=== PATIENT | female | born 1975 | race American Indian/Alaskan Native ===

== ENCOUNTER 2016-06-22 15:59 | Inpatient (IN) | payer MEDICARE ==
[2016-06-22 17:08] LABS: Basophils % (Auto) 0.3 % (0.0-1.8); Eosinophils % (Auto) 1.7 % (0.0-4.3); Hematocrit 38.9 % (30.3-42.9); Mean Corpuscular HGB Conc 34 % (30-34); Mean Corpuscular Hemoglobin 30 pg (28-32); Mean Corpuscular Volume 90 fl (79-97); Platelet Count 149 K/mm3 (140-440); Red Blood Count 4.35 M/mm3 (3.65-5.03); Red Cell Distribution Width 13.1 % (13.2-15.2); White Blood Count 5.7 K/mm3 (4.5-11.0)
[2016-06-22] MEDS ORDERED: ZOFRAN IV ONE (17:43)
[2016-06-22] MEDS ORDERED: MORPHINE IV ONE (17:43)
[2016-06-22 17:57] LABS: Anion Gap 16 mmol/L; Blood Urea Nitrogen 11 mg/dL (7-17); Calcium 8.9 mg/dL (8.4-10.2); Carbon Dioxide 28 mmol/L (22-30); Chloride 100.2 mmol/L (98-107); Glucose 81 mg/dL (65-100); Potassium 5.2 mmol/L (3.6-5.0); Sodium 139 mmol/L (137-145)
--- NOTE | 2016-06-22 18:04 | Emergency Department Report ---
ED Chest Pain HPI - General Chief Complaint: Chest Pain Stated Complaint: CHEST PAIN Time Seen by Provider: 06/22/16 17:16 Source: patient, EMS Mode of arrival: Stretcher Limitations: No Limitations - History of Present Illness Initial Comments: 41-year-old female with a past medical history insulin-dependent diabetes, chronic neuropathy, bipolar, and elevated cholesterol presents to the hospital complains of chest pain and started this morning. Patient states she woke up about 10 AM with left-sided chest pain described as squeezing. Chest pain is intermittent and worse with movement. Mild shortness of breath reported. Onset of nausea without vomiting or diaphoresis. Patient is associative left arm tingling extending down to the fingers and tingling sensation to jaw. The patient does have a history of chronic neuropathy she states these symptoms are new. She denies history of previous stress test. Her dad had a stent placed in his 40s. She does not smoke cigarettes. Severity scale (0 -10): 4 - Related Data Home Medications Medication Instructions Recorded Confirmed Last Taken Aspirin EC [Aspirin Enteric Coated 81 mg PO DAILY 06/22/16 06/22/16 Unknown TAB] Calcium Phosphate Trib/Vit D3 1 tab PO DAILY 06/22/16 06/22/16 Unknown [Calcium + Vitamin D3 Gummies] Citalopram Hydrobromide 20 mg PO BID 06/22/16 06/22/16 Unknown [Citalopram HBr] Meclizine [Antivert] 25 mg PO TID 06/22/16 06/22/16 Unknown Morphine Sulfate [Morphine Sulfate 30 mg PO BID 06/22/16 06/22/16 Unknown ER] Nortriptyline HCl 50 mg PO QHS 06/22/16 06/22/16 Unknown OXcarbazepine [Trileptal] 300 mg PO QID 06/22/16 06/22/16 Unknown Oxycodone HCl [Roxicodone TAB] 15 mg PO QID 06/22/16 06/22/16 Unknown Pravastatin Sodium [Pravastatin] 10 mg PO QHS 06/22/16 06/22/16 Unknown Temazepam 30 mg PO QHS 06/22/16 06/22/16 Unknown clonazePAM 2 mg PO QID 06/22/16 06/22/16 Unknown Allergies Allergy/AdvReac Type Severity Reaction Status Date / Time Sulfa (Sulfonamide Allergy Hives Verified 11/22/15 20:02 Antibiotics) DIEGO score - Diego Score Age > 65: (0) No Aspirin use within the Past 7 Days: (1) Yes 3 or more CAD Risk Factors: (1) Yes 2 or more Angina events in past 24 hrs: (1) Yes Known CAD with more than 50% Stenosis: (0) No Elevated Cardiac Markers: (0) No ST Deviation Greater than 0.5mm: (0) No DIEGO Score: 3 ED Review of Systems ROS: Stated complaint: CHEST PAIN Other details as noted in HPI Comment: All other systems reviewed and negative Other: Constitutional: No fevers chills Eyes: No eye pain visual changes or discharge ENT: No ear pain or throat pain Neck: Denies pain Respiratory: Denies cough wheezing Cardiovascular: Denies palpitations, syncope GI: Denies abdominal pain, vomiting, diarrhea : Denies dysuria, urinary frequency, or urgency Musculoskeletal: Denies back pain, joint swelling Skin: Denies rash, lesions, erythema Neurologic: Denies headache Psychiatric: Denies suicidal ideation, hallucinations ED Past Medical Hx - Past Medical History Hx Diabetes: Yes Hx Liver Disease: Yes (bipolar) Additional medical history: neuropathy, pain management, - Surgical History Hx Cholecystectomy: Yes Additional Surgical History: tubaligation,gastric bypass,tonsillectomy, bilateral carpel tunnel,cataracts - Social History Smoking Status: Never Smoker - Medications Home Medications: Home Medications Medication Instructions Recorded Confirmed Last Taken Type Aspirin EC [Aspirin Enteric Coated 81 mg PO DAILY 06/22/16 06/22/16 Unknown History TAB] Calcium Phosphate Trib/Vit D3 1 tab PO DAILY 06/22/16 06/22/16 Unknown History [Calcium + Vitamin D3 Gummies] Citalopram Hydrobromide 20 mg PO BID 06/22/16 06/22/16 Unknown History [Citalopram HBr] Meclizine [Antivert] 25 mg PO TID 06/22/16 06/22/16 Unknown History Morphine Sulfate [Morphine Sulfate 30 mg PO BID 06/22/16 06/22/16 Unknown History ER] Nortriptyline HCl 50 mg PO QHS 06/22/16 06/22/16 Unknown History OXcarbazepine [Trileptal] 300 mg PO QID 06/22/16 06/22/16 Unknown History Oxycodone HCl [Roxicodone TAB] 15 mg PO QID 06/22/16 06/22/16 Unknown History Pravastatin Sodium [Pravastatin] 10 mg PO QHS 06/22/16 06/22/16 Unknown History Temazepam 30 mg PO QHS 06/22/16 06/22/16 Unknown History clonazePAM 2 mg PO QID 06/22/16 06/22/16 Unknown History ED Physical Exam - General Limitations: No Limitations - Other Other exam information: General: No limitations, patient is alert in no acute distress Head exam: Atraumatic, normocephalic Eyes exam: Normal appearance, pupils equal reactive to light, extraocular movements intact ENT: Moist mucous membrane, normal oropharynx Neck exam: Normal inspection, full range of motion Respiratory exam: Clear to auscultation bilateral, no wheezes, rales, crackles Cardiovascular: Normal rate and rhythm, mild sternal anterior chest wall tenderness Abdomen: Soft, nondistended, and nontender, with normal bowel sounds, no rebound, or guarding Extremity: Full range of motion normal inspection no deformity bi or tenderness or edema Back: Normal Inspection, full range of motion, no tenderness Neurologic: Alert, oriented x3, cranial nerves intact, no motor deficit Psychiatric: normal affect, normal mood Skin: Warm, dry, intact ED Course Vital Signs 06/22/16 06/22/16 06/22/16 16:01 18:00 18:09 Pulse Rate 90 73 Respiratory 16 16 16 Rate Blood Pressure 108/80 Blood Pressure 108/80 109/74 [Left] O2 Sat by Pulse 99 100 Oximetry 06/22/16 18:37 Pulse Rate Respiratory 16 Rate Blood Pressure Blood Pressure [Left] O2 Sat by Pulse 100 Oximetry - Reevaluation(s) Reevaluation #1: 06/22/16 19:27 no change after morphine, zofran. ASA given district captain ED Medical Decision Making - Lab Data Result diagrams: 06/22/16 16:40 06/22/16 16:40 Lab Results 06/22/16 06/22/16 Range/Units 16:40 16:40 WBC 5.7 (4.5-11.0) K/mm3 RBC 4.35 (3.65-5.03) M/mm3 Hgb 13.0 (10.1-14.3) gm/dl Hct 38.9 (30.3-42.9) % MCV 90 (79-97) fl MCH 30 (28-32) pg MCHC 34 (30-34) % RDW 13.1 L (13.2-15.2) % Plt Count 149 (140-440) K/mm3 Lymph % (Auto) 40.1 H (13.4-35.0) % Porter % (Auto) 7.8 H (0.0-7.3) % Eos % (Auto) 1.7 (0.0-4.3) % Baso % (Auto) 0.3 (0.0-1.8) % Lymph # 2.3 (1.2-5.4) K/mm3 Porter # 0.4 (0.0-0.8) K/mm3 Eos # 0.1 (0.0-0.4) K/mm3 Baso # 0.0 (0.0-0.1) K/mm3 Seg Neutrophils % 50.1 (40.0-70.0) % Seg Neutrophils # 2.9 (1.8-7.7) K/mm3 Sodium 139 (137-145) mmol/L Potassium 5.2 H (3.6-5.0) mmol/L Chloride 100.2 (98-107) mmol/L Carbon Dioxide 28 (22-30) mmol/L Anion Gap 16 mmol/L BUN 11 (7-17) mg/dL Creatinine 1.0 (0.7-1.2) mg/dL Estimated GFR > 60 ml/min BUN/Creatinine Ratio 11.00 % Glucose 81 (65-100) mg/dL Calcium 8.9 (8.4-10.2) mg/dL Troponin T < 0.010 (0.00-0.029) ng/mL - EKG Data -: EKG Interpreted by Me (nsr 81, pvc's low voltage qrs) - EKG Data When compared to previous EKG there are: previous EKG unavailable - Medical Decision Making Plan to admit patient to the hospital for cardiac stress testing and further workup of chest pain given risk factors. No signs of acute DE at this time. - Differential Diagnosis DE, unstable angina, atypical chest pain, costochondritis, neuropathy Critical Care Time: No Critical care attestation.: If time is entered above; I have spent that time in minutes in the direct care of this critically ill patient, excluding procedure time. ED Disposition Clinical Impression: Chest pain, Insulin dependent diabetes mellitus, History of high cholesterol, Diabetic neuropathy, Paresthesia of arm Disposition: OP ADMITTED IP TO THIS HOSP Is pt being admited?: Yes Does the pt Need Aspirin: No (received prior to arrival) Condition: Stable Time of Disposition: 19:04 (Dr almazan/[facility])
--- NOTE | 2016-06-22 19:28 | Admit Criteria Form ---
Admission Criteria Documentation: CHEST PAIN Clinical Indications for Admission to Inpatient Care (Place 'X' for any and all applicable criteria): Admission is indicated for chest pain and ANY ONE of the following(1)(2)(3)(4)(5 ): [ ]I. Angina with acute coronary syndrome (Also use Myocardial Infarction or Angina guideline) [ ]II. Hemodynamic instability [ X]III. Angina needing acute intervention as indicated by ALL of the following (11)(12): [ ]a) Unstable angina is present as indicated by angina that is ANY ONE of the following: [ ]i) New onset [ ]ii) Nocturnal [ ]iii) Prolonged at rest [ ]iv) Progressive [X]b) Angina warrants acute intervention as indicated by ANY ONE of the following: [ ]i Recurrent angina (e.g, not responding as previously to treatment) [ ]ii) Angina at rest or with low-level activities despite initial medical therapy [ ]iii) New or presumably new ST-segment depression on ECG [ ]iv) Signs or symptoms of heart failure (eg, dyspnea, pulmonary edema) [ ]v) New or worsening mitral regurgitation [ ]vi) Hemodynamic instability [ ]vii) Dangerous arrhythmia (eg, sustained ventricular tachycardia) [ ]viii) History of percutaneous coronary intervention within 6 months [ ]ix) History of coronary artery bypass graft surgery [X]x) DIEGO risk score of 2 or greater[A] [X]xi) History of Diabetes(14) [ ]xii) High-risk cardiac ischemia findings on noninvasive testing (e.g, echocardiogram, treadmill testing, nuclear scan) [ ]xiii) Chronic renal insufficiency (ie, estimated GFR less than 60 mL/min/1.732m) [ ]xiv) Left ventricular ejection fraction less than 40% [ ]IV. Evidence of MS (eg, cardiac biomarkers positive, ST-segment elevation on ECG) also use Myocardial Infarction Criteria Form. [ ]V. Pulmonary edema [ ]. Respiratory distress [ ]VII. Chest pain indicative of serious diagnosis other than coronary artery disease (eg, aortic dissection) [ ]VIII. Contraindications and/or Inappropriate clinical situations for Observational Care in patients with Chest Pain, when ANY ONE of the following is required: [ ]a) Patient with risk factor for pulmonary embolism, acute coronary syndrome and myocardial infarction (18) [ ]b) Patient with Pulmonary embolism require an average LOS of 4.3 days, therefore emergency department observation management is inappropriate 18,23 [ ]c) Painful condition/s in the elderly, have the highest rate of recidivism after emergency department observation management (10.8%) 20,21,22 [ ]d) Elevated cardiac biomarker requires intensive and exhaustive care (19) [ ]IX. General contraindications and/or Inappropriate clinical situations for Observational Care in patients with Chest Pain, when ANY ONE of the following is required: [ ]a) Prediction of prolongation of LOS based on ANY ONE of the following may be considered as a contraindication for observational care 2, 3, 4, 5, 6, 7, 8, 9, 10, 11 [ ]i) Age > 65 yrs. [ ]ii) Patient arriving by ambulance [ ]iii) Patient with high acuity [ ]iv) Patient requiring vital sign monitoring [ ]v) Patient on IV medication [ ]b) Systolic blood pressures 180mmHg 3,12 [ ]c) Patient with altered mental status including delirium and other alteration of consciousness, (3) [ ]d) Patient whose discharge disposition will be to a half-way home or rehabilitation home should not be managed in Emergency Department Observation Unit. CMS rule requires 3 days hospital stay before such placement. 3,13 [ ]e) Patient with failure to thrive due to broad array of etiologies 3,16,17 [ ]f) Inability to ambulate 3,14 Extended stay beyond goal length of stay may be needed for (1)(28): [ ]a) Specific condition diagnosed after evaluation (eg, pulmonary embolism, aortic dissection) [ ]b) Unstable angina [ ]c) Continued suspicion of acute coronary syndrome with inability to complete needed cardiac evaluation (eg, patient clinically unable to undergo stress testing) [ ]d) Myocardial infarction (Contents from ANGINA and CHEST PAIN clinical indications for admission to inpatient care have been integrated in this form) The original [facility] content created by [employer] has been revised. The portions of the content which have been revised are identified through the use of italic text or in bold, and [facility] [email or web address] has neither reviewed nor approved the modified material. All other unmodified content is copyright [facility]. Please see references footnoted in the original [employer] [facility] edition 2016 Admission Criteria Met: Yes
[2016-06-22] MEDS ORDERED: PERCOCET 5/325 PO PRN (19:31)
[2016-06-22] MEDS ORDERED: TYLENOL PO PRN (19:31)
[2016-06-22] MEDS ORDERED: D50W (25GM) IV PRN (19:31)
[2016-06-22] MEDS ORDERED: ZOFRAN IV PRN (19:31)
[2016-06-22] MEDS ORDERED: PROVENTIL IH PRN (19:31)
[2016-06-22] MEDS ORDERED: DULCOLAX PR PRN (19:31)
[2016-06-22] MEDS ORDERED: SODIUM CHLORIDE FLUSH SYRINGE 10 ML IV PRN (19:31)
[2016-06-22] MEDS ORDERED: MILK OF MAGNESIA PO PRN (19:31)
[2016-06-22] MEDS ORDERED: MORPHINE IV PRN (19:31)
--- NOTE | 2016-06-22 19:43 | History and Physical Report ---
History of Present Illness Date of examination: 06/22/16 Date of admission: 06-22-16 Chief complaint: chest pain History of present illness: 41-year-old female with extensive past medical history her risk factors including hypertension, diabetes, hyperlipidemia, strong family history neuropathy and chronic pain presents with a new episode of left-sided chest pain. Patient had similar episode approximate 6 months ago but left AGAINST MEDICAL ADVICE. Patient never had initial workup. Patient states she was doing okay in her normal state of health until yesterday morning actually 10 AM in which she had a tingling in her left arm that went down to her fingertips. This tingling also went to her chin as well. This lasted for approximately 1 hour on and off. There was never any acute pain. Mostly numbness and tingling. This was not associated with shortness of breath or dyspnea on exertion orthopnea no PND. Patient has had diabetes for approximately 20 years and is suffering from extensive neuropathy. Patient thought this was neuropathy at was making her feel bad because of the tingling. Patient has been out of her Lyrica and which she says she was getting 200 mg 3 times a day. After the Lyrica did not work for neuropathy patient was sent to pain management and was started on the morphine and Roxicodone that we have here. She states her sugars been doing pretty well. Patient moved here from [facility] and the majority of workup for everything is been in [place]. Patient has not had a cardiac workup ever. At present patient is hemodynamically stable and pain-free. Although has some numbness. No nausea vomiting no diarrhea no constipation. Patient states symptoms and pain lasted for approximately 30 minutes to an hour. Had been more frequently. Denies at present shortness of breath denies hypoglycemia. Past History Past Medical History: arrhythmia, diabetes, hypertension. denies: acute [place], atrial fib, anemia, arthritis, CAD, cancer, COPD, dialysis, DVT, ESRD, GERD, heart failure, hepatitis, HIV/AIDS, hyperthyroidism, hyperlipidemia, hypothyroidism, liver disease, migraines, PVD, pulmonary embolism, renal failure , seizures, stroke, sarcoidosis Past Surgical History: , hysterectomy, tonsillectomy, Other Social history: , lives with family, full code. denies: smoking, alcohol abuse, prescription drug abuse, IV drug use Family history: CAD, hypertension Medications and Allergies Allergies Allergy/AdvReac Type Severity Reaction Status Date / Time Sulfa (Sulfonamide Allergy Hives Verified 11/22/15 20:02 Antibiotics) Home Medications Medication Instructions Recorded Confirmed Last Taken Type Aspirin EC [Aspirin Enteric Coated 81 mg PO DAILY 06/22/16 06/22/16 Unknown History TAB] Calcium Phosphate Trib/Vit D3 1 tab PO DAILY 06/22/16 06/22/16 Unknown History [Calcium + Vitamin D3 Gummies] Citalopram Hydrobromide 20 mg PO BID 06/22/16 06/22/16 Unknown History [Citalopram HBr] Meclizine [Antivert] 25 mg PO TID 06/22/16 06/22/16 Unknown History Morphine Sulfate [Morphine Sulfate 30 mg PO BID 06/22/16 06/22/16 Unknown History ER] Nortriptyline HCl 50 mg PO QHS 06/22/16 06/22/16 Unknown History OXcarbazepine [Trileptal] 300 mg PO QID 06/22/16 06/22/16 Unknown History Oxycodone HCl [Roxicodone TAB] 15 mg PO QID 06/22/16 06/22/16 Unknown History Pravastatin Sodium [Pravastatin] 10 mg PO QHS 06/22/16 06/22/16 Unknown History Temazepam 30 mg PO QHS 06/22/16 06/22/16 Unknown History clonazePAM 2 mg PO QID 06/22/16 06/22/16 Unknown History Review of Systems Constitutional: no weight loss, no weight gain, no fever, no chills, no sweats, no anorexia, no fatigue, no weakness, no malaise, no lethargy, no poor appetite , no chronic pain, no other Ears, nose, mouth and throat: no deferred, no ear discharge, no decreased hearing, no nasal discharge, no epistaxis, no mouth pain, no hoarseness, no sore throat, no headache Cardiovascular: chest pain, rapid/irregular heart beat, lightheadedness, high blood pressure, leg edema, decreased exercise tolerance, no orthopnea, no palpitations, no edema, no syncope, no shortness of breath, no dyspnea on exertion, no paroxysmal nocturnal dyspnea, no claudication, no phlebitis Respiratory: shortness of breath, no cough, no cough with sputum, no hemoptysis , no pleurisy, no pain, no sleep apnea, no respiratory infections, no home oxygen Gastrointestinal: nausea, no abdominal pain, no vomiting, no diarrhea, no constipation, no change in bowel habits, no BRBPR, no melena, no loss of appetite, no early satiety, no heartburn, no jaundice, no dyspepsia/bloating, no early satiety Genitourinary Female: no flank pain, no menorrhagia, no dysuria, no urgency, no post void dribbling, no incomplete emptying, no vaginal itching, no vaginal odor , no genital sores, no decreased libido, no mood problems, no hot flashes Menstruation: no ammenorrhea, no period normal, no period heavy, no menses variable, no cycle < 21 days, no cycle variable, no no periods for 6 months Musculoskeletal: muscle weakness, no neck stiffness, no neck pain, no shooting arm pain, no arm numbness/tingling, no low back pain, no morning stiffness, no muscle cramps, no limitation of motion, no gait dysfunction, no frequent falls, no fractures, no loss of height Neurological: other (she does have bilateral sensory neuropathy), no transient paralysis, no weakness, no parathesias, no tingling, no seizures, no syncope, no tremors, no ataxia, no convulsions, no aphasia, no change in speech, no change in mentation, no confusion, no memory loss, no motor disturbance, no sensory deficit, no loss of vision, no burning pain Psychiatric: no anxiety, no memory loss, no change in sleep habits, no sleep disturbances, no insomnia, no hypersomnia, no change in libido, no suicidal ideation, no paranoia, no depression, no hopelessness, no anhedonia, no anxiety attacks, no confusion Endocrine: no polyphagia, no excessive thirst, no flushing, no increase in ring/ shoe/hat size, no deepening of the voice, no thyroid mass, no palpatations, no high blood sugars, no low blood sugars, no recent glucocorticoid use Hematologic/Lymphatic: no easy bruising, no easy bleeding, no thrombophilia, no other Allergic/Immunologic: no allergic rhinitis, no anaphylaxis Exam - Constitutional Vitals: Temp Pulse Resp BP Pulse Ox 73 16 109/74 100 06/22/16 18:00 06/22/16 18:37 06/22/16 18:00 06/22/16 18:37 General appearance: Present: no acute distress, well-nourished - EENT Eyes: Present: PERRL ENT: hearing intact, clear oral mucosa - Neck Neck: Present: supple, normal ROM - Respiratory Respiratory effort: normal Respiratory: bilateral: CTA - Cardiovascular Heart Sounds: Present: S1 & S2. Absent: rub, click - Extremities Extremities: pulses symmetrical, No edema Peripheral Pulses: within normal limits - Abdominal General gastrointestinal: Present: soft, non-tender, non-distended, normal bowel sounds Female genitourinary: Present: normal - Integumentary Integumentary: Present: clear, warm, dry - Musculoskeletal Musculoskeletal: strength equal bilaterally, other (lateral sensory neuropathy) - Psychiatric Psychiatric: appropriate mood/affect, intact judgment & insight - Neurologic Neurologic: CNII-XII intact, moves all extremities Results - Labs CBC & Chem 7: 06/22/16 16:40 06/22/16 16:40 Labs: Laboratory Last Values WBC 5.7 K/mm3 (4.5-11.0) 06/22/16 16:40 RBC 4.35 M/mm3 (3.65-5.03) 06/22/16 16:40 Hgb 13.0 gm/dl (10.1-14.3) 06/22/16 16:40 Hct 38.9 % (30.3-42.9) 06/22/16 16:40 MCV 90 fl (79-97) 06/22/16 16:40 MCH 30 pg (28-32) 06/22/16 16:40 MCHC 34 % (30-34) 06/22/16 16:40 RDW 13.1 % (13.2-15.2) L 06/22/16 16:40 Plt Count 149 K/mm3 (140-440) 06/22/16 16:40 Lymph % (Auto) 40.1 % (13.4-35.0) H 06/22/16 16:40 [place] % (Auto) 7.8 % (0.0-7.3) H 06/22/16 16:40 Eos % (Auto) 1.7 % (0.0-4.3) 06/22/16 16:40 Baso % (Auto) 0.3 % (0.0-1.8) 06/22/16 16:40 Lymph # 2.3 K/mm3 (1.2-5.4) 06/22/16 16:40 [place] # 0.4 K/mm3 (0.0-0.8) 06/22/16 16:40 Eos # 0.1 K/mm3 (0.0-0.4) 06/22/16 16:40 Baso # 0.0 K/mm3 (0.0-0.1) 06/22/16 16:40 Seg Neutrophils % 50.1 % (40.0-70.0) 06/22/16 16:40 Seg Neutrophils # 2.9 K/mm3 (1.8-7.7) 06/22/16 16:40 Sodium 139 mmol/L (137-145) 06/22/16 16:40 Potassium 5.2 mmol/L (3.6-5.0) H 06/22/16 16:40 Chloride 100.2 mmol/L (98-107) 06/22/16 16:40 Carbon Dioxide 28 mmol/L (22-30) 06/22/16 16:40 Anion Gap 16 mmol/L 06/22/16 16:40 BUN 11 mg/dL (7-17) 06/22/16 16:40 Creatinine 1.0 mg/dL (0.7-1.2) 06/22/16 16:40 Estimated GFR > 60 ml/min 06/22/16 16:40 BUN/Creatinine Ratio 11.00 % 06/22/16 16:40 Glucose 81 mg/dL (65-100) 06/22/16 16:40 Calcium 8.9 mg/dL (8.4-10.2) 06/22/16 16:40 Troponin T < 0.010 ng/mL (0.00-0.029) 06/22/16 16:40 - Imaging and Cardiology EKG: image reviewed Chest x-ray: image reviewed Assessment and Plan Advance Directives: Yes Plan of care discussed with patient/family: Yes - Patient Problems (1) HTN (hypertension) Current Visit: Yes Status: Acute Qualifiers: Hypertension type: H Plan to address problem: Patient blood pressure fairly well-controlled. Continue medical management. (2) Chest pain Current Visit: Yes Status: Acute Qualifiers: Chest pain type: C Plan to address problem: S pain very difficult to tell whether this is cardiac in nature. Mostly neuropathy. Her symptoms however are in left arm left shoulder chest area and radiate to Chin. Patient has enough significant risk factors that she requires ruling out. Patient has hypertension hyperlipidemia diabetes for greater than 20 years morbid obesity and a strong family history. Will bring in obtain stress test echocardiogram and further risk stratify will cardiac isoenzymes. 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 We'll need to gain a better understanding of how good her blood sugars a been. Patient states they've been well controlled however will need further follow-up hemoglobin A1c. We'll place patient on diabetic diet Accu-Cheks before every meal seeing daily at bedtime cover with sliding-scale insulin. He should also has been out of Lyrica. States she was taking 200 mg 3 times a day and I cannot confirm this we 'll start with 75 mg 3 times a day. If we get obtain some confirmation of these dosages will change. (4) History of high cholesterol Current Visit: Yes Status: Acute (5) Insulin dependent diabetes mellitus Current Visit: Yes Status: Acute Plan to address problem: We'll place patient back on current insulin dose and diabetic diet with sliding- scale insulin coverage. Obtain A1c to examine how well controlled patient has been. 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 (6) Paresthesia of arm Current Visit: Yes Status: Acute
[2016-06-22 21:16] LABS: Creatine Kinase MB 3.1 ng/mL (0.0-4.0)
[2016-06-22 21:18] LABS: Creatine Kinase 59 units/L (30-135)
[2016-06-22] MEDS ORDERED: PAMELOR PO SCH (22:00)
[2016-06-22] MEDS ORDERED: PEPCID IV SCH (22:00)
[2016-06-22] MEDS ORDERED: NON-FORMULARY (Pravastatin Sodium [Pravastatin] 10 MG) PO SCH (22:00)
[2016-06-22] MEDS ORDERED: ZOCOR PO SCH (22:00)
[2016-06-22] MEDS: ANTIVERT PO SCH (22:30)
[2016-06-22] MEDS: celeXA PO SCH (22:31)
[2016-06-22] MEDS: TRILEPTAL PO SCH (23:18)
[2016-06-22] MEDS: MS CONTIN ER PO SCH (23:18)
[2016-06-22] MEDS ORDERED: RESTORIL PO SCH (23:45)
[2016-06-22 23:59] LABS: Creatine Kinase MB 2.7 ng/mL (0.0-4.0)
[2016-06-23 00:01] LABS: Creatine Kinase 59 units/L (30-135)
[2016-06-23] MEDS: ROXICODONE PO SCH ×4 (05:03→14:49)
[2016-06-23 07:08] LABS: Creatine Kinase MB 2.3 ng/mL (0.0-4.0)
[2016-06-23 07:13] LABS: Creatine Kinase 56 units/L (30-135)
[2016-06-23] MEDS ORDERED: LEXISCAN IV ONE ×2 (09:32→09:52)
[2016-06-23] MEDS ORDERED: BABY ASPIRIN PO SCH (10:00)
[2016-06-23] MEDS ORDERED: HALFPRIN EC PO SCH (10:00)
[2016-06-23] MEDS ORDERED: PEPCID PO SCH (10:00)
[2016-06-23] MEDS ORDERED: LOVENOX SUB-Q SCH (10:00)
--- NOTE | 2016-06-23 10:29 | Consultation ---
History of Present Illness Consult date: 06/23/16 Requesting physician: NIVIA RIVAS Consult reason: chest pain History of present illness: The patient is a 41 year old female with a history of hypertension, diabetes, hyperlipdiemia, heart failure who presented with complaints of chest pain that started yesterday morning approximately 30 minutes after she completed [employer] cardiac aerobics. She states the chest pain was left sided with radiation to her left arm and jaw described as a squeezing pain. She states the pain lasted for approximately one hour. No shortness of breath, palpitations, nausea, vomiting or diaphoresis. Troponin negative x 3. No previous ischemic evaluation. Past History Past Medical History: diabetes, heart failure, hypertension, hyperlipidemia Past Surgical History: , hysterectomy, tonsillectomy Social history: , lives with family, full code. denies: smoking, alcohol abuse, prescription drug abuse, IV drug use Family history: CAD, hypertension Medications and Allergies Allergies Allergy/AdvReac Type Severity Reaction Status Date / Time Sulfa (Sulfonamide Allergy Hives Verified 11/22/15 20:02 Antibiotics) Home Medications Medication Instructions Recorded Confirmed Last Taken Type Aspirin EC [Aspirin Enteric Coated 81 mg PO DAILY 06/22/16 06/22/16 Unknown History TAB] Calcium Phosphate Trib/Vit D3 1 tab PO DAILY 06/22/16 06/22/16 Unknown History [Calcium + Vitamin D3 Gummies] Citalopram Hydrobromide 20 mg PO BID 06/22/16 06/22/16 Unknown History [Citalopram HBr] Meclizine [Antivert] 25 mg PO TID 06/22/16 06/22/16 Unknown History Morphine Sulfate [Morphine Sulfate 30 mg PO BID 06/22/16 06/22/16 Unknown History ER] Nortriptyline HCl 50 mg PO QHS 06/22/16 06/22/16 Unknown History OXcarbazepine [Trileptal] 300 mg PO QID 06/22/16 06/22/16 Unknown History Oxycodone HCl [Roxicodone TAB] 15 mg PO QID 06/22/16 06/22/16 Unknown History Pravastatin Sodium [Pravastatin] 10 mg PO QHS 06/22/16 06/22/16 Unknown History Temazepam 30 mg PO QHS 06/22/16 06/22/16 Unknown History clonazePAM 2 mg PO QID 06/22/16 06/22/16 Unknown History Active Meds: Active Medications Acetaminophen (Tylenol) 650 mg PO Q4H PRN PRN Reason: Pain MILD(1-3)/Fever >100.5/VELAZQUEZ Albuterol (Proventil) 2.5 mg IH Q3HRT PRN PRN Reason: Shortness Of Breath Aspirin (Halfprin Ec) 81 mg PO DAILY [facility] Bisacodyl (Dulcolax) 10 mg [place] QDAY PRN PRN Reason: Constipation unrelieved by MOM Citalopram Hydrobromide (Celexa) 20 mg PO BID [facility] Last Admin: 06/22/16 22:31 Dose: 20 mg Clonazepam (Klonopin) 2 mg PO QID [facility] Last Admin: 06/22/16 22:31 Dose: 2 mg Dextrose (D50w (25gm)) 50 ml IV PRN PRN PRN Reason: Hypoglycemia Enoxaparin Sodium (Lovenox) 40 mg SUB-Q QDAY [facility] Famotidine (Pepcid) 10 mg PO BID [facility] Insulin Human Regular (Novolin R) 0 units SUB-Q ACHS [facility] PRN Reason: Protocol Last Admin: 06/22/16 23:19 Dose: Not Given Magnesium Hydroxide (Milk Of Magnesia) 30 ml PO Q4H PRN PRN Reason: Constipation Meclizine HCl (Antivert) 25 mg PO TID [facility] Last Admin: 06/22/16 22:30 Dose: 25 mg Morphine Sulfate (Morphine) 2 mg IV Q4H PRN PRN Reason: Pain, Moderate (4-6) Morphine Sulfate (Ms Contin Er) 30 mg PO BID [facility] Last Admin: 06/22/16 23:18 Dose: 30 mg Nortriptyline HCl (Pamelor) 50 mg PO QHS [facility] Last Admin: 06/22/16 23:19 Dose: 50 mg Ondansetron HCl (Zofran) 4 mg IV Q8H PRN PRN Reason: N/V unrelieved by Reglan Oxcarbazepine (Trileptal) 300 mg PO QID [facility] Last Admin: 06/22/16 23:18 Dose: 300 mg Oxycodone HCl (Roxicodone) 15 mg PO QID [facility] Last Admin: 06/23/16 05:07 Dose: Not Given Oxycodone/Acetaminophen (Percocet 5/325) 1 tab PO Q6H PRN PRN Reason: Pain, Moderate (4-6) Simvastatin (Zocor) 10 mg PO QHS [facility] Last Admin: 06/22/16 23:18 Dose: 10 mg Sodium Chloride (Sodium Chloride Flush Syringe 10 Ml) 10 ml IV PRN PRN PRN Reason: LINE FLUSH Temazepam (Restoril) 30 mg PO QHS [facility] Last Admin: 06/23/16 05:03 Dose: Not Given Review of Systems Constitutional: no fever, no chills Ears, nose, mouth and throat: no nasal congestion, no nasal discharge, no sinus pressure Cardiovascular: chest pain, no shortness of breath, no dyspnea on exertion, no leg edema Respiratory: no cough, no shortness of breath, no dyspnea on exertion, no congestion, no wheezing Gastrointestinal: no abdominal pain, no nausea, no vomiting, no diarrhea Genitourinary Female: no dysuria, no urgency Musculoskeletal: arm numbness/tingling (left arm), no neck stiffness, no neck pain Integumentary: no rash, no pruritis Neurological: no parathesias, no numbness, no tingling Endocrine: no cold intolerance, no heat intolerance Hematologic/Lymphatic: no easy bruising, no easy bleeding Allergic/Immunologic: no urticaria, no wheezing Physical Examination Vital Signs Pulse Resp BP Pulse Ox 90 16 108/80 99 06/22/16 16:01 06/22/16 16:01 06/22/16 16:01 06/22/16 16:01 General appearance: no acute distress, obese HEENT: Positive: Normocephaly, Mucus Membranes Moist Neck: Positive: neck supple, trachea midline Cardiac: Positive: Reg Rate and Rhythm, S1/S2 Lungs: Positive: clear to auscultation Neuro: Positive: Grossly Intact Abdomen: Positive: Soft, Active Bowel Sounds. Negative: Tender Skin: Positive: Clear. Negative: Rash Extremities: Present: normal. Absent: edema Results 06/22/16 16:40 06/22/16 16:40 Cardiac Enzymes 06/22/16 06/22/16 06/23/16 Range/Units 20:23 23:07 05:08 CK-MB (CK-2) 3.1 2.7 2.3 (0.0-4.0) ng/mL Lipids 06/22/16 Range/Units 20:23 Triglycerides 87 (2-149) mg/dL Cholesterol 164 (50-199) mg/dL HDL Cholesterol 68 H (40-59) mg/dL Cholesterol/HDL Ratio 2.41 % - Imaging and Cardiology Echo: pending EKG: image reviewed EKG interpretations - Telemetry EKG Rhythm: Sinus Rhythm Assessment and Plan Chest pain-->resolved troponin negative x 3 no acute EKG changes await echo and stress test results Hypertension BP low off of anti-hypertensives monitor closely Hyperlipidemia continue statin Diabetes Await echo and stress test results. The patient has been seen in conjunction with Dr. Stout who agrees with the assessment and plan of care. Thank you Dr. Rivas for allowing us to participate in the care of this patient.
[2016-06-23 11:43] VITALS: BP 86/58
--- NOTE | 2016-06-23 12:50 | Discharge Summary ---
Providers - Providers Date of Admission: 06/22/16 19:07 Attending physician: DANIAL CANTRELL MD 06/22/16 Consult to Cardiac Rehabilitation [CONS] Routine Reason For Exam: Phase I 06/22/16 19:31 Consult to Physician [CONS] Routine Consulting Provider: TYLER MCMAHON Reason For Exam: cp Place consult to:: answering service Notified:: yes Was contact made?: Yes Time called:: 19:45 Primary care physician: BERNARD BONNER MD Hospitalization Condition: Stable Hospital course: 41-year-old woman with past medical history of chronic pain syndrome who presents with one-day of chest pain. Chest pain began after doing possible aerobics, ACS was ruled out by her serial troponins were noted to have nuclear stress and echocardiogram are within normal limits. Chest pain was most likely musculoskeletal in origin from aerobic activity. She was advised to continue taking her pain meds at home as needed for chest pain Discharge diagnosis 1. Chest pain, most useful eats on origin 2. Chronic pain syndrome Disposition: DISCHARGED TO HOME OR SELFCARE Time spent for discharge: 35 minutes Core Measure Documentation - Palliative Care Palliative Care/ Comfort Measures: Not Applicable - Core Measures Any of the following diagnoses?: none Exam - Constitutional Vitals: Temp Pulse Resp BP Pulse Ox 97.6 F 86 18 86/58 99 06/23/16 08:31 06/23/16 09:54 06/23/16 08:31 06/23/16 09:54 06/23/16 08:31 General appearance: Present: no acute distress, well-nourished - EENT Eyes: Present: PERRL ENT: hearing intact, clear oral mucosa - Neck Neck: Present: supple, normal ROM - Respiratory Respiratory effort: normal Respiratory: bilateral: CTA - Cardiovascular Heart Sounds: Present: S1 & S2. Absent: rub, click - Extremities Extremities: pulses symmetrical, No edema Peripheral Pulses: within normal limits - Abdominal General gastrointestinal: Present: soft, non-tender, non-distended, normal bowel sounds Female genitourinary: Present: normal - Integumentary Integumentary: Present: clear, warm, dry - Musculoskeletal Musculoskeletal: gait normal, strength equal bilaterally - Psychiatric Psychiatric: appropriate mood/affect, intact judgment & insight - Neurologic Neurologic: CNII-XII intact, moves all extremities Plan Follow up with: PRIMARY CAREMD [Primary Care Provider] - 3-5 Days
[2016-06-23] MEDS: MS CONTIN ER PO SCH (13:16)
[2016-06-23] MEDS: ANTIVERT PO SCH ×2 (13:17→14:52)
[2016-06-23] MEDS: TRILEPTAL PO SCH ×2 (13:18→14:50)
[2016-06-23] MEDS: celeXA PO SCH (13:18)
--- NOTE | 2016-06-23 22:24 | Treadmill Report ---
NUCLEAR CARDIAC IMAGING INDICATION FOR PROCEDURE: Chest pain. Informed consent was obtained. DESCRIPTION OF PROCEDURE: Resting nuclear cardiac images were performed following the intravenous administration of 10 mCi of technetium 99m Myoview. Images were performed 45-60 minutes following the administration of the isotope. ____vasodilator stress was subsequently performed with the intravenous administration of 0.4 mg of Lexiscan per protocol. Stress myocardial perfusion imaging was then performed 30-45 minutes following the intravenous administration of 28 mCi of technetium 99m Myoview. Images were obtained in a 180-degree arc from 45 degrees [place] to 45 degrees LPO. After data acquisition and reconstruction, the images were processed and reoriented into the vertical long, horizontal long, and horizontal short axis slices. A polar color map of the horizontal short axis slices was generated and reviewed. The rotating planar images were reviewed in cinematic format on the computer console. Gated SPECT imaging demonstrates a post-stress left ventricular ejection fraction of 61% with normal wall motion. Myocardial perfusion imaging demonstrates no significant cavity change between stress and rest. No significant stress induced perfusion defects are seen. Nuclear cardiac imaging demonstrates grossly normal post-stress left ventricular systolic function with no significant evidence for myocardial ischemia or necrosis. The procedure was well tolerated. There were no complications. JOB# [id number] BRENDA/CHRISTY
== END 2016-06-23 16:39 | disposition home or self-care (01) | DRG 313 ==
LOC: ED 15:59 → 4A 19:07
PROVIDERS: ADMIT Internal Medicine; ATTEND Internal Medicine
DX: R07.89 Other chest pain (principal); E11.40 Type 2 diabetes mellitus with diabetic neuropathy, unspecified; F31.9 Bipolar disorder, unspecified; E78.5 Hyperlipidemia, unspecified; R20.8 Other disturbances of skin sensation; I11.0 Hypertensive heart disease with heart failure; I50.9 Heart failure, unspecified; G89.4 Chronic pain syndrome; Z88.2 Allergy status to sulfonamides; Z98.51 Tubal ligation status; Z90.49 Acquired absence of other specified parts of digestive tract; Z98.49 Cataract extraction status, unspecified eye; Z98.891 History of uterine scar from previous surgery; Z90.710 Acquired absence of both cervix and uterus; Z82.49 Family history of ischemic heart disease and other diseases of the circulatory system; Z79.4 Long term (current) use of insulin; Z86.39 Personal history of other endocrine, nutritional and metabolic disease; E66.01 Morbid (severe) obesity due to excess calories; Z68.36 Body mass index [BMI] 36.0-36.9, adult
CPT/HCPCS: 36415; 78452; 80048; 80061; 82550; 82553; 82962; 83036; 84484; 85025; 93005; 93010; 93017; 93306; 96374; 96375; A9502; J1650; J2270; J2405; J2785